=== PATIENT | male | born 1950 | race Caucasian/White ===

== ENCOUNTER → 2016-04-16 | Outpatient (CLI) | payer OTHER ==
[~2016-04-16] MED LIST: BLOOD PRESSURE MED; NORVASC 10MG10 MG PO; PERCOCET 325 MG1 TA2 PO; PRILOSEC 20MG20 MG PO; SOTALOL HYDROCH80 MG PO; XARELTO15 MG PO
== END ==
LOC: LAB 15:02
DX: Z01.812 Encounter for preprocedural laboratory examination (principal); I72.3 Aneurysm of iliac artery

== ENCOUNTER → 2017-01-19 | Outpatient (CLI) | payer MEDICARE, OTHER ==
[2015-07-18 22:38] VITALS: BP 111/72
[2017-01-19 17:53] LABS: EOS # 0.1 (0.04-0.40); EOS % 1.6 % (0.0-4.0); HEMATOCRIT 45.3 % (42.0-52.0); HEMOGLOBIN 15.5 g/dL (13.5-18.0); LYMPH# 1.4 (1.50-4.00); MEAN CELL VOLUME 92 fl (78-100); MEAN CORPUSCULAR HEMOGLOBIN 32 pg (27-31); MEAN CORPUSCULAR HGB CONC 34 g/dL (33-37); MEAN PLATELET VOLUME 9.4 fl (7.4-10.4); MONO # 0.5 (0.20-0.80); NEU # 4.4 (1.40-6.50); PLATELET COUNT 254 K/mm3 (130-400); RED BLOOD COUNT 4.92 M/mm3 (4.20-5.60); RED CELL DISTRIBUTION WIDTH 13.1 % (11.5-14.5); WHITE BLOOD COUNT 6.5 K/mm3 (4.8-10.8)
[2017-01-19 18:16] LABS: ALBUMIN 4.4 g/dL (3.5-5.0); BUN/CREATININE RATIO 20.4 (6.0-26.0); CALCIUM 9.7 mg/dL (8.4-10.2); POTASSIUM 4.2 mmol/L (3.6-5.0); TOTAL BILIRUBIN 0.7 mg/dL (0.2-1.3); TOTAL PROTEIN 7.6 g/dL (6.3-8.2)
[2017-01-19 20:14] LABS: ERYTHROCYTE SEDIMENTATION RATE 1 mm/hr (0-20)
== END ==
LOC: LAB 17:05
PROVIDERS: Internal Medicine
DX: Z00.00 Encounter for general adult medical examination without abnormal findings (principal); I48.91 Unspecified atrial fibrillation; Z12.5 Encounter for screening for malignant neoplasm of prostate; E78.2 Mixed hyperlipidemia; Z12.11 Encounter for screening for malignant neoplasm of colon

== ENCOUNTER → 2017-01-28 | Outpatient (CLI) | payer MEDICARE, OTHER ==
[2015-07-18 22:38] VITALS: BP 111/72
== END ==
LOC: LAB 11:55
DX: Z12.11 Encounter for screening for malignant neoplasm of colon (principal); Z00.00 Encounter for general adult medical examination without abnormal findings

== ENCOUNTER → 2018-11-18 | Outpatient (CLI) | payer MEDICARE, OTHER ==
[2015-07-18 22:38] VITALS: BP 111/72
== END ==
LOC: LAB 13:39 → EDSTATUS 16:01
DX: Z12.11 Encounter for screening for malignant neoplasm of colon (principal); I48.91 Unspecified atrial fibrillation

== ENCOUNTER → 2021-01-16 | Outpatient (CLI) | payer MEDICARE, OTHER | LOC: LAB 12:50 | DX: U07.1 COVID-19 (principal) ==

== ENCOUNTER → 2021-01-18 | Outpatient (CLI) | payer MEDICARE, OTHER ==
[~2021-01-18] VITALS: Ht 188 cm; Wt 96.4 kg
[2021-01-18 10:26] VITALS: BP 105/67
== END ==
LOC: AMSURD 02:17
DX: U07.1 COVID-19 (principal); E66.9 Obesity, unspecified; I51.9 Heart disease, unspecified
CPT/HCPCS: M0247; Q0247

== ENCOUNTER → 2021-03-10 | Outpatient (CLI) | payer MEDICARE, OTHER ==
[2021-03-10 09:14] LABS: BASO # 0.04 K/mm3 (0.02-0.10); EOS # 0.17 K/mm3 (0.04-0.40); EOS % 3.1 % (0.0-4.0); HEMOGLOBIN 16.4 g/dL (13.5-18.0); LYMPH# 1.42 K/mm3 (1.50-4.00); MEAN CELL VOLUME 95 fl (78-100); MEAN CORPUSCULAR HEMOGLOBIN 32 pg (27-31); MEAN CORPUSCULAR HGB CONC 34 g/dL (33-37); MONO # 0.54 K/mm3 (0.20-0.80); NEU # 3.26 K/mm3 (1.40-6.50); PLATELET COUNT 245 K/mm3 (130-400); RED BLOOD COUNT 5.17 M/mm3 (4.20-5.60); RED CELL DISTRIBUTION WIDTH 13.6 % (11.5-14.5); WHITE BLOOD COUNT 5.4 K/mm3 (4.8-10.8)
[2021-03-10 09:17] LABS: ALBUMIN 4.4 g/dL (3.4-4.8); POTASSIUM 4.6 mmol/L (3.5-5.1)
[2021-03-10 09:18] LABS: CALCIUM 9.7 mg/dL (8.3-10.5)
[2021-03-10 09:19] LABS: TOTAL PROTEIN 7.7 g/dL (6.2-8.1)
[2021-03-10 09:21] LABS: TOTAL BILIRUBIN 0.8 mg/dL (0.2-1.2)
[2021-03-10 09:26] LABS: MAGNESIUM 2.26 mg/dL (1.60-2.60)
[2021-03-10 10:37] LABS: ERYTHROCYTE SEDIMENTATION RATE 2 mm/hr (0-20)
[2021-03-10 11:37] LABS: URINE APPEARANCE HAZY; URINE BILIRUBIN NEGATIVE (NEGATIVE); URINE BLOOD NEGATIVE (NEGATIVE); URINE COLOR DK YELLOW; URINE GLUCOSE NEGATIVE (NEGATIVE); URINE KETONE NEGATIVE (NEGATIVE); URINE LEUKOCYTE ESTERASE NEGATIVE (NEGATIVE); URINE NITRATE NEGATIVE (NEGATIVE); URINE PROTEIN(semi-quant) TRACE (NEGATIVE); URINE UROBILINOGEN NORMAL (NORMAL); URINE WBC 0-1 /hpf (0-3)
[2021-03-10 11:38] LABS: URINE MUCUS PRESENT (NOT PRESENT)
[2021-03-10 23:06] LABS: FOLLICLE STIMULATING HORMONE 9.9 mIU/mL (1.0-12.0); LUTENIZING HORMONE 3.9 mIU/mL (0.6-12.1); PROLACTIN AMS 23.2 ng/mL (3.5-19.4)
== END ==
LOC: LAB 08:13
PROVIDERS: Internal Medicine
DX: Z12.5 Encounter for screening for malignant neoplasm of prostate (principal); I10 Essential (primary) hypertension; K90.9 Intestinal malabsorption, unspecified; E78.2 Mixed hyperlipidemia; N52.9 Male erectile dysfunction, unspecified

== ENCOUNTER → 2021-03-11 | Outpatient (CLI) | payer MEDICARE, OTHER | LOC: RAD 07:38 | DX: H54.7 Unspecified visual loss (principal); R41.3 Other amnesia; R90.82 White matter disease, unspecified | CPT/HCPCS: A9585 ==

== ENCOUNTER → 2021-09-23 | Outpatient (CLI) | payer MEDICARE, OTHER | LOC: RAD 07:46 | DX: M19.012 Primary osteoarthritis, left shoulder (principal) ==

== ENCOUNTER → 2021-11-06 | Outpatient (CLI) | payer MEDICARE, OTHER ==
[2021-11-06 14:27] LABS: URINE WBC 0 /hpf (0-3)
[2021-11-06 14:51] LABS: BASO # 0.03 K/mm3 (0.02-0.10); EOS # 0.15 K/mm3 (0.04-0.40); EOS % 2.4 % (0.0-4.0); HEMATOCRIT 46.8 % (42.0-52.0); HEMOGLOBIN 15.8 g/dL (13.5-18.0); LYMPH# 1.81 K/mm3 (1.50-4.00); MEAN CELL VOLUME 94 fl (78-100); MEAN CORPUSCULAR HEMOGLOBIN 32 pg (27-31); MEAN CORPUSCULAR HGB CONC 34 g/dL (33-37); MEAN PLATELET VOLUME 8.7 fl (7.4-10.4); NEU # 3.84 K/mm3 (1.40-6.50); PLATELET COUNT 236 K/mm3 (130-400); RED BLOOD COUNT 4.99 M/mm3 (4.20-5.60); RED CELL DISTRIBUTION WIDTH 12.7 % (11.5-14.5); WHITE BLOOD COUNT 6.3 K/mm3 (4.8-10.8)
[2021-11-06 15:00] LABS: ALBUMIN 4.2 g/dL (3.4-4.8)
[2021-11-06 15:01] LABS: POTASSIUM 4.6 mmol/L (3.5-5.1)
[2021-11-06 15:02] LABS: CALCIUM 9.6 mg/dL (8.3-10.5)
[2021-11-06 15:03] LABS: TOTAL PROTEIN 7.3 g/dL (6.2-8.1)
[2021-11-06 15:05] LABS: TOTAL BILIRUBIN 0.6 mg/dL (0.2-1.2)
[2021-11-06 15:09] LABS: MAGNESIUM 2.12 mg/dL (1.60-2.60)
[2021-11-06 15:44] LABS: PROTHROMBIN TIME 13.2 SECONDS (9.0-12.0)
[2021-11-06 17:16] LABS: URINE APPEARANCE CLEAR; URINE BILIRUBIN NEGATIVE (NEGATIVE); URINE BLOOD NEGATIVE (NEGATIVE); URINE COLOR YELLOW; URINE GLUCOSE NEGATIVE (NEGATIVE); URINE KETONE NEGATIVE (NEGATIVE); URINE LEUKOCYTE ESTERASE NEGATIVE (NEGATIVE); URINE MUCUS PRESENT (NOT PRESENT); URINE NITRATE NEGATIVE (NEGATIVE); URINE PROTEIN(semi-quant) 1+ (NEGATIVE); URINE UROBILINOGEN NORMAL (NORMAL)
== END ==
LOC: AMSURD 14:02
PROVIDERS: Internal Medicine
DX: Z01.812 Encounter for preprocedural laboratory examination (principal); I48.91 Unspecified atrial fibrillation; I26.99 Other pulmonary embolism without acute cor pulmonale; I72.3 Aneurysm of iliac artery; I45.10 Unspecified right bundle-branch block

== ENCOUNTER → 2021-11-10 | Outpatient (CLI) | payer MEDICARE, OTHER | LOC: PT 09:01 | DX: S49.82XA Other specified injuries of left shoulder and upper arm, initial encounter (principal); X58.XXXA Exposure to other specified factors, initial encounter ==

== ENCOUNTER 2021-11-20 09:47 | Outpatient (RCR) | payer MEDICARE, OTHER | END 2021-12-08 | disposition home or self-care (01) | LOC: PT | DX: Z98.890 Other specified postprocedural states (principal) ==

== ENCOUNTER 2021-12-11 09:52 | Outpatient (RCR) | payer MEDICARE, OTHER | END 2022-01-07 | disposition home or self-care (01) | LOC: PT | DX: Z98.890 Other specified postprocedural states (principal) ==

== ENCOUNTER → 2022-03-25 | Outpatient (CLI) | payer MEDICARE, OTHER ==
[2022-03-25 08:57] LABS: POTASSIUM 4.3 mmol/L (3.5-5.1)
[2022-03-25 08:58] LABS: CALCIUM 9.5 mg/dL (8.3-10.5)
== END ==
LOC: LAB 08:20
PROVIDERS: Internal Medicine
DX: I72.3 Aneurysm of iliac artery (principal)

== ENCOUNTER → 2023-10-12 | Outpatient (CLI) | payer MEDICARE, OTHER ==
[2023-10-12 08:25] LABS: BASO # 0.02 K/mm3 (0.02-0.10); EOS # 0.15 K/mm3 (0.04-0.40); EOS % 2.2 % (0.0-4.0); HEMOGLOBIN 16.5 g/dL (13.5-18.0); LYMPH# 1.62 K/mm3 (1.50-4.00); MEAN CELL VOLUME 96 fl (78-100); MEAN CORPUSCULAR HEMOGLOBIN 32 pg (27-31); MEAN CORPUSCULAR HGB CONC 33 g/dL (33-37); MEAN PLATELET VOLUME 8.5 fl (7.4-10.4); NEU # 4.26 K/mm3 (1.40-6.50); PLATELET COUNT 199 K/mm3 (130-400); RED BLOOD COUNT 5.22 M/mm3 (4.20-5.60); WHITE BLOOD COUNT 6.8 K/mm3 (4.8-10.8)
[2023-10-12 08:37] LABS: ALBUMIN 4.3 g/dL (3.4-4.8)
[2023-10-12 08:39] LABS: CALCIUM 9.8 mg/dL (8.3-10.5)
[2023-10-12 08:40] LABS: TOTAL PROTEIN 7.3 g/dL (6.2-8.1)
[2023-10-12 09:18] LABS: TOTAL BILIRUBIN 0.7 mg/dL (0.2-1.2)
[2023-10-12 23:05] LABS: HEPATITIS C VIRUS ANTIBODY Negative (Nonreactiv)
[2023-10-13 18:36] LABS: MAGNESIUM 2.17 mg/dL (1.60-2.60)
== END ==
LOC: LAB 08:10
PROVIDERS: Internal Medicine
DX: Z12.5 Encounter for screening for malignant neoplasm of prostate (principal); Z12.11 Encounter for screening for malignant neoplasm of colon; Z11.59 Encounter for screening for other viral diseases; I10 Essential (primary) hypertension; E78.2 Mixed hyperlipidemia; E53.8 Deficiency of other specified B group vitamins; R73.9 Hyperglycemia, unspecified